=== PATIENT | female | born 2000 | race Caucasian/White ===

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

== ENCOUNTER 2018-09-01 08:28 | Emergency (ER) | payer OTHER ==
--- NOTE | 2018-09-01 08:48 | ED ---
Syncope/Near Syncope - HPI Summary HPI Summary: This pt is a 18 y/o female presenting to [facility] via EMS from home for syncope today. Mother reports pt was not feeling well last night and was lightheaded. This morning the pt felt the same and was lying on the living room floor to sleep it off. Per mother, pt syncopized and was twitching, this lasted for about 30 seconds. Pt denies any injuries. EMS reports blood glucose of 83. Her lightheadedness is aggravated by sitting up and alleviated by lying down. Pt reports she has had decreased appetite in the last couple of days, not drinking or eating well. 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 Pt states she has myalgia, sometimes a headache, nausea for the last couple of days, and sometimes palpitations. Denies fever, chills, sore throat, chest pain, SOB, joint pain, abd pain, dysuria, hematuria, urinary frequency, back pain, vaginal bleeding or discharge, rash. She has not been sleeping well because she notes she has been getting stressed out recently. Per mother, pt recently returned from [facility] on July 27, 2018. Pt has hx of episodes of syncope in the past and she has had cardiac tests. She does not take any medications. No other PMHx. Her PCP is [facility], in [place]. LMP: 07/16/18. Denies chance of . - History Of Current Complaint Chief Complaint: EDSyncope Time Seen by Provider: 09/01/18 08:42 Hx Obtained From: Patient, Family/Requirements Analyst - Mother, EMS Onset/Duration: Lasting Hours Timing: Hours Associated Head Trauma: No Aggravating Factor(s): Other - sitting up Alleviating Factor(s): Nothing Associated Signs And Symptoms: Dizzy, Headache, Lightheadedness, Palpitations, Other - POSITIVE: nausea, recent stress. NEGATIVE: fever, chills, sore throat, chest pain, SOB, joint pain, abd pain, dysuria, hematuria, urinary frequency, back pain, vaginal bleeding or discharge, rash. - Allergies/Home Medications Allergies/Adverse Reactions: Allergies Allergy/AdvReac Type Severity Reaction Status Date / Time No Known Allergies Allergy Verified 09/01/18 08:36 PMH/Surg Hx/FS Hx/Imm Hx Endocrine/Hematology History: Denies: Hx Diabetes, Hx Systemic Lupus Erythematosus Cardiovascular History: Denies: Hx Congestive Heart Failure, Hx Hypertension Respiratory History: Reports: Hx Asthma - exercise induced take albuterol as needed GI History: Reports: Other GI Disorders - pain discomfrt r/o conditions History: Denies: Hx Dialysis, Hx Renal Disease Musculoskeletal History: Denies: Hx Rheumatoid Arthritis, Hx Osteoporosis - Cancer History Hx Chemotherapy: No - Surgical History Surgery Procedure, Year, and Place: T&A 2002 Infectious Disease History: No Infectious Disease History: Reports: Traveled Outside the [place] in Last 30 Days - [place] - Family History Known Family History: Positive: Hypertension Negative: Cardiac Disease, Diabetes Family History: Great uncle with thyroid CA. - Social History Alcohol Use: Occasionally Substance Use Type: Reports: None Smoking Status (MU): Never Smoked Tobacco Review of Systems Constitutional: Other - POS: decreased appetite Negative: Fever, Chills Negative: Erythema Negative: Sore Throat Positive: Palpitations. Negative: Chest Pain Negative: Shortness Of Breath, Cough Positive: Nausea. Negative: Abdominal Pain, Vomiting Negative: dysuria, discharge, hematuria, other - vaginal bleeding Positive: Myalgia. Negative: Edema Negative: Rash Neurological: Other - POSITIVE: lightheadedness/dizziness Positive: Headache, Syncope Psychological: Other - POS: recent stress All Other Systems Reviewed And Are Negative: Yes Physical Exam - Summary Physical Exam Summary: Constitutional: Well-developed, Well-nourished, Alert. (-) Distressed Skin: Warm, Dry HENT: Normocephalic; Atraumatic Eyes: Conjunctiva normal Neck: Musculoskeletal ROM normal neck. (-) JVD, (-) Stridor, (-) Tracheal deviation Cardio: Rhythm regular, rate normal, Heart sounds normal; Intact distal pulses; The pedal pulses are 2+ and symmetric. Radial pulses are 2+ and symmetric. (-) Murmur Pulmonary/Chest wall: Effort normal. (-) Respiratory distress, (-) Wheezes, (-) Rales Abd: Soft, (-) Tenderness, (-) Distension, (-) Guarding, (-) Rebound Musculoskeletal: (-) Edema Lymph: (-) Cervical adenopathy Neuro: Alert, Oriented x3 Psych: Mood and affect Normal Triage Information Reviewed: Yes Vital Signs On Initial Exam: Initial Vitals Temp Pulse Resp BP Pulse Ox 98.1 F 66 14 110/71 100 09/01/18 08:33 09/01/18 08:33 09/01/18 08:33 09/01/18 08:33 09/01/18 08:33 Vital Signs Reviewed: Yes Diagnostics - Vital Signs Vital Signs Temp Pulse Resp BP Pulse Ox 09/01/18 08:33 98.1 F 66 14 110/71 100 - Laboratory Result Diagrams: 09/01/18 08:58 09/01/18 08:58 Lab Statement: Any lab studies that have been ordered have been reviewed, and results considered in the medical decision making process. - EKG 08:46 Cardiac Rate: Bradycardia - at 51 bpm EKG Rhythm: Sinus Bradycardia Summary of EKG Findings: Sinus or ectopic atrial bradycardia at 51 bpm. No STEMI. Re-Evaluation - Re-Evaluation First Eval Re-Evaluation Time: 12:16 Change: Improved Comment: Pt is feeling better. She is no longer nauseous. Pt will be discharged home. Course/Dx Assessment/Plan: Pt is a 18 y/o female presenting to [facility] via EMS from home for syncope today. Mother reports pt was not feeling well last night and was lightheaded. This morning the pt felt the same and was lying on the living room floor to sleep it off. Per mother, pt syncopized and was twitching, this lasted for about 30 seconds. Pt denies any injuries. EMS reports blood glucose of 83. Her lightheadedness is aggravated by sitting up and alleviated by lying down. Pt reports she has had decreased appetite in the last couple of days, not drinking or eating well. 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 No findings of significant arrhythmia, she is nontoxic appearing. Patient has prior hx of syncope. Lab results are unremarkable. In the ED course the pt was given IV fluids. Patient does NOT appear acutely ill. Her volume status is now normal. Patient was given information about proper nutrition and electrolyte intake. She will be discharged home and is to follow up with her PCP in 2-3 days. Pt was given a referral to follow up with cardiology as well in 2-3 days. Mother and pt understand and agree. - Diagnoses Provider Diagnoses: Recurrent syncope Discharge - Sign-Out/Discharge Documenting (check all that apply): Patient Departure - Discharge home Patient Received Moderate/Deep Sedation with Procedure: No - Discharge Plan Condition: Stable Disposition: HOME Patient Education Materials: Syncope (ED) Referrals: Mayito Estrada PA [Primary Care Provider] - (2-3 days.) LENNY Bear [[employer], APPLICATION, OTHER] - Jose Alejandro Lynn MD [Medical Doctor] - (2-3 days) Additional Instructions: Follow up with your primary care provider in 2-3 days. You have been given a referral to follow up with cardiology in 2-3 days. RETURN TO THE EMERGENCY DEPARTMENT FOR CHANGING OR WORSENING SYMPTOMS. - Attestation Statements Document Initiated by Scribe: Yes Documenting Scribe: Paulina Moon Provider For Whom Scribe is Documenting (Include Credential): Joo Patterson MD Scribe Attestation: Paulina Arriola, scribed for Joo Patterson MD on 09/01/18 at 1230. Status of Scribe Document: Ready
[2018-09-01 09:09] LABS: ABS Eosinophils 0.1 10^3/ul (0-0.6); ABS Lymphocytes 1.4 10^3/ul (1.0-4.8); ABS Monocytes 0.6 10^3/ul (0-0.8); ABS Neutrophils 3.8 10^3/ul (1.5-7.7); Eosinophil % 1.6 %; Hematocrit 40 % (35-47); Hemoglobin 13.4 g/dL (12.0-16.0); Lymphocyte % 23.2 %; Mean Corpuscular HGB Conc 34 g/dL (31-36); Mean Corpuscular Hemoglobin 30 pg (27-31); Mean Corpuscular Volume 89 fL (80-97); Mean Platelet Volume 9.8 fL (7.4-10.4); Nucleated Red Blood Cells % 0.1; Platelet Count 275 10^3/uL (150-450); Red Blood Count 4.45 10^6 /uL (3.70-4.87); Red Cell Distribution Width 13 % (10-15); White Blood Count 5.9 10^3/uL (3.5-10.8)
[2018-09-01 09:22] LABS: ALT 13 U/L (7-52); AST 16 U/L (13-39); Albumin 4.5 g/dL (3.2-5.2); Albumin/Globulin Ratio 1.7 (1-3); Alkaline Phosphatase 56 U/L (34-104); Anion Gap 6 mmol/L (2-11); Blood Urea Nitrogen 16 mg/dL (6-24); CO2 Carbon Dioxide 24 mmol/L (22-32); Calcium 9.8 mg/dL (8.6-10.3); Chloride 108 mmol/L (101-111); EGFR African American 110.7 (>60); EGFR Non-African American 91.4 (>60); Globulin 2.7 g/dL (2-4); Glucose 91 mg/dL (70-100); Magnesium 1.9 mg/dL (1.9-2.7); Sodium 138 mmol/L (135-145); Total Protein 7.2 g/dL (6.4-8.9)
[2018-09-01 09:28] LABS: HCG Pregnancy < 0.60 mIU/mL
[2018-09-01] MEDS ORDERED: NS 0.9% 1000 ML** 2,000 ML IV ONE (09:29)
[2018-09-01 09:57] LABS: Alcohol < 10 mg/dL (<10)
[2018-09-01 10:12] LABS: TSH (Thyroid Stimulating Horm) 0.95 mcIU/mL (0.34-5.60)
[2018-09-01 11:53] LABS: Urine Appearance Clear; Urine Bilirubin Negative (Negative); Urine Blood Negative (Negative); Urine Color Yellow; Urine Glucose Negative (Negative); Urine Ketones Trace (Negative); Urine Nitrite Negative (Negative); Urine Protein Negative (Negative); Urine Specific Gravity 1.017 (1.010-1.030); Urine Urobilinogen Negative (Negative)
[2018-09-01 12:18] VITALS: BP 116/69
[2018-09-01 12:21] LABS: Urine Benzodiazepine Screen None Detected (None Detect); Urine Opiates Screen None Detected (None Detect)
== END 2018-09-01 12:38 | disposition home or self-care (01) ==
LOC: ED 08:28
DX: R55 Syncope and collapse (principal)
CPT/HCPCS: 36415; 80053; 80307; 80320; 81003; 83605; 83735; 84443; 84702; 85025; 93005; 96360; 96361; 99284; G0480